=== PATIENT | male | born 1970 | race African-American/Black ===

== ENCOUNTER 2016-09-05 18:08 | Emergency (ER) | payer OTHER ==
[2016-09-05 18:16] VITALS: BP 132/88; PULSE 78; TEMP 98.2; BMI 24.0
[2016-09-05] MEDS ORDERED: CYCLOBENZAPRINE HCL 10 MG TABLET (FP) ONE (18:44)
[2016-09-05] MEDS ORDERED: KETOROLAC TROMETHAMINE 60 MG/2 ML VIAL ONE (18:44)
[2016-09-05] MEDS ORDERED: KETOROLAC TROMETHAMINE 60 MG/2 ML VIAL IM ONE (18:50)
[2016-09-05] MEDS ORDERED: CYCLOBENZAPRINE HCL 10 MG TABLET (FP) PO ONE (18:50)
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
== END 2016-09-05 19:02 | disposition home or self-care (01) ==
LOC: JERFT 18:08
DX: S13.4XXA Sprain of ligaments of cervical spine, initial encounter (principal); M62.830 Muscle spasm of back; V44.5XXA Car driver injured in collision with heavy transport vehicle or bus in traffic accident, initial encounter; Y92.414 Local residential or business street as the place of occurrence of the external cause; Y93.89 Activity, other specified
CPT/HCPCS: 99281-25

== ENCOUNTER 2016-09-07 18:19 | Emergency (ER) | payer OTHER ==
[2016-09-07 18:24] VITALS: BP 118/65; PULSE 63; TEMP 97.7; BMI 23.7
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
== END 2016-09-07 19:16 | disposition home or self-care (01) ==
LOC: JERFT 18:19
DX: S13.4XXA Sprain of ligaments of cervical spine, initial encounter (principal); V43.52XA Car driver injured in collision with other type car in traffic accident, initial encounter; Y93.89 Activity, other specified; Y92.410 Unspecified street and highway as the place of occurrence of the external cause; D86.9 Sarcoidosis, unspecified
CPT/HCPCS: 99281-25

== ENCOUNTER 2018-12-04 11:14 | Emergency (ER) | payer SELFPAY ==
[2018-12-04 11:24] VITALS: BP 109/62; PULSE 56; TEMP 98.1; BMI 51.2
--- NOTE | 2018-12-04 12:21 | PDOC ---
History of Present Illness - General Chief Complaint: Pain, Acute Stated Complaint: RT LEG PAIN Time Seen by Provider: 12/04/18 11:41 History Source: Patient Exam Limitations: No Limitations - History of Present Illness Initial Comments: 12/04/18 12:33 48 year old male with medical history of sarcoidosis and right shoulder surgery presents with reports of pain in right lower back that radiates to right lower leg x 2 weeks. Patient reports intermittent issue with back, pain radiating down lower back into right buttocks and down to right thigh. Denies heavy lifting, or injury. Took ibuprofen with no relief of symptoms. Occurred: reports: other (2 weeks ) Severity: reports: mild Pain Location: reports: back Method of Injury: Yes: unknown Modifying Factors: improves with: pain medication Loss of Consciousness: no loss of consciousness Past History - Travel Traveled outside of the country in the last 30 days: No Close contact w/someone who was outside of country & ill: No - Past Medical History Allergies/Adverse Reactions: Allergies Allergy/AdvReac Type Severity Reaction Status Date / Time No Known Drug Allergies Allergy Verified 12/04/18 12:13 Home Medications: Ambulatory Orders Cyclobenzaprine HCl [Flexeril 10 mg] 10 mg PO BID PRN #14 tablet 09/05/16 Diazepam [Valium] 10 mg PO TID #10 tablet MDD 3 09/07/16 Cyclobenzaprine HCl [Flexeril -] 5 mg PO TID #21 tablet 12/04/18 Naproxen 500 mg PO BID #20 tablet 12/04/18 COPD: No Other medical history: sciatica - Surgical History Lung Surgery: Yes (BIOPSY LUNG FOR \SARCOIDOSIS) - Immunization History Immunization Up to Date: Yes - Suicide/Smoking/Psychosocial Hx Smoking History: Former smoker Have you smoked in the past 12 months: No Number of Cigarettes Smoked Daily: 1 Cigars Per Day: 0 Information on smoking cessation initiated: No Hx Alcohol Use: No Drug/Substance Use Hx: No Substance Use Type: None, Marijuana Trauma Specific PMHX - Complaint Specific PMHX Back Injury: No Neck Injury: No Review of Systems - Review of Systems Able to Perform ROS?: Yes Is the patient limited Zambian proficient: No Constitutional: No: Chills, Fever, Night Sweats HEENTM: No: Hearing Loss, Throat Pain, Throat Swelling Respiratory: No: Cough, Orthopnea, Shortness of Breath, SOB at Rest, Stridor, Wheezing Cardiac (ROS): No: Chest Pain, Irregular Heart Rate, Palpitations ABD/GI: No: Nausea, Poor Appetite : No: Dysuria Musculoskeletal: Yes: Back Pain, Joint Pain Integumentary: No: Bruising Neurological: No: Numbness, Paresthesia, Tremors *Physical Exam - Vital Signs Last Vital Signs Temp Pulse Resp BP Pulse Ox 98.1 F 56 L 16 109/62 97 12/04/18 11:21 12/04/18 11:21 12/04/18 11:21 12/04/18 11:21 12/04/18 11:21 - Physical Exam General Appearance: Yes: Nourished, Appropriately Dressed HEENT: positive: VIOLETA, TMs Normal, Pharynx Normal Neck: positive: Supple. 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 back pain toradol given 12/04/18 13:04 sciatica feeling better after pain medication rx: ibuprofen and flexeril *DC/Admit/Observation/Transfer Diagnosis at time of Disposition: Sciatica Qualifiers: Laterality: right Qualified Code(s): M54.31 - Sciatica, right side - Discharge Dispostion Disposition: HOME Condition at time of disposition: Good Decision to Admit order: No - Prescriptions Prescriptions: Cyclobenzaprine HCl [Flexeril -] 5 mg PO TID #21 tablet Naproxen 500 mg PO BID #20 tablet - Referrals - Patient Instructions Printed Discharge Instructions: Low Back Pain Additional Instructions: Activity as tolerated may follow up with orthopedic for chronic lower back pain Take medication as prescribed - Post Discharge Activity Forms/Work/School Notes: Back to Work
[2018-12-04] MEDS ORDERED: KETOROLAC TROMETHAMINE 30 MG/1 ML VIAL IM ONE (12:22)
[2018-12-04] MEDS ORDERED: KETOROLAC TROMETHAMINE 30 MG/1 ML VIAL ONE (12:25)
== END 2018-12-04 13:08 | disposition home or self-care (01) ==
LOC: JERFT 11:14
PROC: 3E0233Z Introduction of Anti-inflammatory into Muscle, Percutaneous Approach (ICD-10-PCS; principal; 2018-12-04)
DX: M54.41 Lumbago with sciatica, right side (principal)
CPT/HCPCS: 99282-25